=== PATIENT | female | born 1945 | race Caucasian/White ===

== ENCOUNTER 2021-10-28 08:46 | Inpatient (IN) ==
[2021-10-28] MEDS ORDERED: Naloxone 0.4 MG/ML INJ IVP PRN (15:09)
[2021-10-28] MEDS ORDERED: Perflutren Lipid Microsphere 1.3 ML in 0.9 % Sodium Chloride 8.7 ML IVP PRN (15:13)
[2021-10-28] MEDS: Ipratropium/Albuterol Neb 3 ML IH SCH ×3 (15:22→19:59)
[2021-10-28] MEDS ORDERED: Furosemide 40 MG/4 ML VIAL IVP ONE ×2 (15:46→21:00)
[2021-10-28 15:49] LABS: ABG Base Excess -8 mEq/L (-2 to 3); ABG HCO3 17 mEq/L (21-27); ABG Oxygen Saturation 88 % (95-98); ABG PCO2 29 mmHg (35-45); ABG PH 7.36 pH Units (7.32-7.45); ABG PO2 56 mmHg (85-104); ABG TCO2 18 mEq/L (20-26)
[2021-10-28] MEDS: Piperacillin/Tazobactam 3.375 GM in 0.9 % Sodium Chloride Mini Bag 100 ML IVPB SCH ×2 (16:44→23:29)
[2021-10-28 17:33] LABS: Basophils # 0.1 K/mcL (0.0-0.2); Basophils % 0.6 %; Eosinophils # 0.8 K/mcL (0.0-0.6); Eosinophils % 4.4 %; Hematocrit 21.8 % (35.3-44.9); Hemoglobin 7.1 g/dL (11.5-15.4); Immature Granulocytes % 0.8 % (0-4); Lymphocytes # 1.5 K/mcL (0.6-4.6); Lymphocytes % 8.9 %; Mean Corpuscular HGB Conc 32.6 g/dL (31.6-35.5); Mean Corpuscular Hemoglobin 27.3 pg (28.0-33.3); Mean Corpuscular Volume 83.8 fL (83.0-100.0); Mean Platelet Volume 9.6 fL (9.4-12.4); Monocytes # 1.7 K/mcL (0.0-1.3); Monocytes % 10.2 %; Neutrophils # 12.7 K/mcL (1.6-8.9); Platelet Count 646 K/mcL (140-400); Red Cell Distribution Width 19.8 % (11.5-14.5); Segmented Neutrophils % 75.1 %; White Blood Count 16.9 K/mcL (4.3-11.1)
[2021-10-28 17:44] LABS: INR 2.3
[2021-10-28 17:47] LABS: Activated Partial Thrombo Time 34.8 Seconds (26.0-36.0)
[2021-10-28 17:57] LABS: BUN/Creatinine Ratio 50 (6-26); Blood Urea Nitrogen 37 mg/dL (8-23); C-Reactive Protein 235 mg/L (Less than 10); Calcium 8.5 mg/dL (8.6-10.3); Carbon Dioxide 17 mEq/L (23-29); Chloride 106 mEq/L (98-107); Glucose 84 mg/dL (70-105); Osmolality,Calculated 290 (280-300); Phosphorous 3.7 mg/dL (2.7-4.5); Potassium 3.4 mEq/L (3.5-5.1); Sodium 136 mEq/L (136-145); eGFR For African Americans > 60 (> 60); eGFR For Non-African Americans > 60 (> 60)
[2021-10-28 17:58] LABS: Troponin I < 0.03 ng/mL (< 0.04)
[2021-10-28] MEDS ORDERED: *HR* HYDROmorphone (PF) 1 MG/ML SYRINGE IVP ONE (18:21)
[2021-10-28 19:05] LABS: Bilirubin,Urine Negative (Negative); Blood,Urine Negative (Negative); Clarity,Urine Clear (Clear); Color,Urine Colorless (Yellow); Glucose,Urine (UA) Normal (Normal); Ketones,Urine Negative (Negative); Leukocyte Esterase,Urine Negative (Negative); Nitrite,Urine Negative (Negative); Protein,Urine Trace mg/dL (Neg-Trace); Urobilinogen,Urine Normal (Normal)
[2021-10-28] MEDS: Vancomycin Oral Soln 125 MG/2.5 ML UDC PO SCH (20:49)
[2021-10-28] MEDS: *HR* OxyCODONE Immed Rel 5 MG TABLET PO PRN (21:19)
[2021-10-29] MEDS: *HR* OxyCODONE Immed Rel 5 MG TABLET PO PRN ×2 (01:37→21:22)
[2021-10-29] MEDS: Ipratropium/Albuterol Neb 3 ML IH SCH ×4 (03:54→20:39)
[2021-10-29] MEDS ORDERED: 0.9 % Sodium Chloride 500 ML IVC ONE ×2 (05:25→05:52)
[2021-10-29] MEDS ORDERED: 0.9 % Sodium Chloride 500 ML ONE (05:25)
[2021-10-29 05:38] LABS: Basophils # 0.2 K/mcL (0.0-0.2); Basophils % 1.2 %; Eosinophils # 1.4 K/mcL (0.0-0.6); Hematocrit 22.7 % (35.3-44.9); Hemoglobin 7.1 g/dL (11.5-15.4); Immature Granulocytes % 0.8 % (0-4); Lymphocytes # 1.5 K/mcL (0.6-4.6); Lymphocytes % 10.8 %; Mean Corpuscular HGB Conc 31.3 g/dL (31.6-35.5); Mean Corpuscular Hemoglobin 26.4 pg (28.0-33.3); Mean Corpuscular Volume 84.4 fL (83.0-100.0); Mean Platelet Volume 9.4 fL (9.4-12.4); Monocytes # 1.5 K/mcL (0.0-1.3); Monocytes % 10.6 %; Neutrophils # 9.5 K/mcL (1.6-8.9); Platelet Count 632 K/mcL (140-400); Red Blood Count 2.69 M/mcL (3.82-4.97); Red Cell Distribution Width 19.9 % (11.5-14.5); Segmented Neutrophils % 66.6 %; White Blood Count 14.3 K/mcL (4.3-11.1)
[2021-10-29 05:42] LABS: INR 1.9; Prothrombin Time 21.2 Seconds (9.4-12.1)
[2021-10-29] MEDS ORDERED: 0.9 % Sodium Chloride 250 ML IVC SCH (05:45)
[2021-10-29 05:55] LABS: BUN/Creatinine Ratio 39 (6-26); Blood Urea Nitrogen 33 mg/dL (8-23); Calcium 8.5 mg/dL (8.6-10.3); Carbon Dioxide 19 mEq/L (23-29); Chloride 107 mEq/L (98-107); Glucose 79 mg/dL (70-105); Magnesium 1.9 mg/dL (1.6-2.6); Osmolality,Calculated 286 (280-300); Phosphorous 4.6 mg/dL (2.7-4.5); Potassium 3.3 mEq/L (3.5-5.1); Sodium 135 mEq/L (136-145); eGFR For African Americans > 60 (> 60); eGFR For Non-African Americans > 60 (> 60)
[2021-10-29] MEDS ORDERED: *HR* Dextrose 50 % in Water (Syg) 50 ML SYRINGE ONE (06:06)
[2021-10-29] MEDS ORDERED: Dextrose Gel 15 GM/37.5 ML TUBE PO PRN ×2 (06:07)
[2021-10-29] MEDS ORDERED: D5% in Water 1,000 ML IVC PRN (06:07)
[2021-10-29] MEDS: *HR* Dextrose 50 % in Water (Syg) 50 ML SYRINGE IVP PRN ×2 (06:15→20:10)
[2021-10-29 06:34] LABS: Influenza A PCR Negative (Negative); Influenza B PCR Negative (Negative); Resp. Syncytial Virus PCR Negative (Negative)
[2021-10-29 07:04] LABS: SARS-CoV-2 by PCR (In House) Negative (Negative)
[2021-10-29] MEDS ORDERED: 0.9 % Sodium Chloride 250 ML ONE (07:39)
[2021-10-29] MEDS: Piperacillin/Tazobactam 3.375 GM in 0.9 % Sodium Chloride Mini Bag 100 ML IVPB SCH ×3 (08:07→23:28)
[2021-10-29] MEDS: Vancomycin Oral Soln 125 MG/2.5 ML UDC PO SCH ×4 (08:07→21:22)
[2021-10-29] MEDS ORDERED: Perflutren Lipid Microsphere 1.3 ML in 0.9 % Sodium Chloride 8.7 ML IVP PRN (09:32)
[2021-10-29] MEDS ORDERED: *HR* Heparin 5,000 UNIT/ML VIAL IVP PRN ×3 (15:01→15:25)
[2021-10-29] MEDS ORDERED: *HR* Heparin 5,000 UNIT/ML VIAL IVP ONE ×2 (15:01→15:25)
[2021-10-29] MEDS ORDERED: Heparin 25,000UNIT/250ML 1/2NS 25,000 UNIT/250 ML IV.SOLN IVC SCH (15:15)
[2021-10-29] MEDS ORDERED: Lidocaine -MPF 1% 5 ML AMPUL INFILT ONE (16:39)
[2021-10-29] MEDS: Albumin 25% 25gram/100mL 25 GM/100 ML IV.SOLN IVC SCH ×2 (18:00→18:46)
[2021-10-29] MEDS: Heparin 25,000 UNIT/250 ML 25,000 UNIT/250 ML IV.SOLN IVC SCH (18:01)
[2021-10-29 18:10] LABS: Total Protein,Pleural Fluid 2.1 g/dL; Total Protein,Pleural Fluid 2.2 g/dL
[2021-10-29 18:17] LABS: Hematocrit 27.5 % (35.3-44.9)
[2021-10-29 18:18] LABS: Hemoglobin 8.9 g/dL (11.5-15.4)
[2021-10-29 18:23] LABS: Heparin anti-factor XA UFH 0.99 IU/mL (0.30-0.70); INR 1.7; Prothrombin Time 18.6 Seconds (9.4-12.1)
[2021-10-29 18:24] LABS: RBC,Pleural Fluid 3000 RBC/mcL
[2021-10-29 18:25] LABS: Activated Partial Thrombo Time 31.8 Seconds (26.0-36.0)
[2021-10-29 18:30] LABS: RBC,Pleural Fluid 4000 RBC/mcL
[2021-10-29 18:47] LABS: Albumin 2.4 g/dL (3.5-5.7); Bilirubin,Direct 0.5 mg/dL (0.0-0.2); Bilirubin,Indirect 0.3 mg/dL (0.0-1.0); Bilirubin,Total 0.8 mg/dL (0.3-1.0); Globulin 2.5 g/dL (2.4-3.5); Total Protein 4.9 g/dL (6.4-8.9)
[2021-10-29 19:03] LABS: Basophils,Pleural Fluid 0 %; Eosinophils,Pleural Fluid 0 %
[2021-10-29 19:04] LABS: Appearance of Pleural Fl Clear (Clear)
[2021-10-29 19:06] LABS: Basophils,Pleural Fluid 0 %
[2021-10-29 19:07] LABS: Appearance of Pleural Fl Clear (Clear)
[2021-10-29] MEDS: *HR* HYDROmorphone (PF) 1 MG/ML SYRINGE IVP PRN (20:09)
[2021-10-29 20:21] LABS: Hematocrit 24.1 % (35.3-44.9); Hemoglobin 7.7 g/dL (11.5-15.4); Mean Corpuscular Hemoglobin 26.9 pg (28.0-33.3); Mean Corpuscular Volume 84.3 fL (83.0-100.0); Mean Platelet Volume 9.5 fL (9.4-12.4); Platelet Count 522 K/mcL (140-400); Red Blood Count 2.86 M/mcL (3.82-4.97); Red Cell Distribution Width 18.2 % (11.5-14.5); White Blood Count 14.9 K/mcL (4.3-11.1)
[2021-10-29] MEDS: Mirtazapine 15 MG TABLET PO SCH (21:22)
[2021-10-29] MEDS: Latanoprost 2.5 ML BOTTLE BOTH EYES SCH (21:22)
[2021-10-29] MEDS: Leptospermum Honey Gel 44 ML TUBE TP SCH (21:23)
[2021-10-29] MEDS: Albumin 25% 25gram/100mL 25 GM/100 ML IV.SOLN IVPB SCH (23:29)
[2021-10-30] MEDS: Ipratropium/Albuterol Neb 3 ML IH SCH ×4 (04:04→23:09)
[2021-10-30] MEDS: *HR* HYDROmorphone (PF) 1 MG/ML SYRINGE IVP PRN ×2 (05:10→20:06)
[2021-10-30 05:24] LABS: Hematocrit 24.6 % (35.3-44.9); Hemoglobin 7.8 g/dL (11.5-15.4); Mean Corpuscular HGB Conc 31.7 g/dL (31.6-35.5); Mean Corpuscular Hemoglobin 26.7 pg (28.0-33.3); Mean Corpuscular Volume 84.2 fL (83.0-100.0); Mean Platelet Volume 9.2 fL (9.4-12.4); Platelet Count 508 K/mcL (140-400); Red Blood Count 2.92 M/mcL (3.82-4.97); Red Cell Distribution Width 18.1 % (11.5-14.5); White Blood Count 11.6 K/mcL (4.3-11.1)
[2021-10-30] MEDS: *HR* Dextrose 50 % in Water (Syg) 50 ML SYRINGE IVP PRN (05:27)
[2021-10-30 05:41] LABS: BUN/Creatinine Ratio 40 (6-26); Blood Urea Nitrogen 24 mg/dL (8-23); Calcium 8.2 mg/dL (8.6-10.3); Carbon Dioxide 16 mEq/L (23-29); Chloride 111 mEq/L (98-107); Glucose 76 mg/dL (70-105); Osmolality,Calculated 289 (280-300); Potassium 3.6 mEq/L (3.5-5.1); Sodium 138 mEq/L (136-145); eGFR For African Americans > 60 (> 60); eGFR For Non-African Americans > 60 (> 60)
[2021-10-30] MEDS: *HR* OxyCODONE Immed Rel 5 MG TABLET PO PRN ×2 (08:05→22:34)
[2021-10-30] MEDS: Albumin 25% 25gram/100mL 25 GM/100 ML IV.SOLN IVPB SCH ×2 (08:06→16:30)
[2021-10-30] MEDS: Vancomycin Oral Soln 125 MG/2.5 ML UDC PO SCH ×4 (08:06→22:35)
[2021-10-30] MEDS: Piperacillin/Tazobactam 3.375 GM in 0.9 % Sodium Chloride Mini Bag 100 ML IVPB SCH ×2 (08:08→16:31)
[2021-10-30 08:12] LABS: Lactate Dehydrogenase 226 Units/L (140-271)
[2021-10-30] MEDS: Doxycycline 100 MG CAPSULE PO SCH ×2 (10:02→22:34)
[2021-10-30] MEDS: Leptospermum Honey Gel 44 ML TUBE TP SCH ×2 (10:02→22:35)
[2021-10-30] MEDS: Heparin 25,000 UNIT/250 ML 25,000 UNIT/250 ML IV.SOLN IVC SCH (18:16)
[2021-10-30] MEDS: Ondansetron 4 MG/2 ML VIAL IVP PRN (20:07)
[2021-10-30] MEDS: Latanoprost 2.5 ML BOTTLE BOTH EYES SCH (22:35)
[2021-10-30] MEDS: Mirtazapine 15 MG TABLET PO SCH (22:35)
[2021-10-31] MEDS: Doxycycline 100 MG CAPSULE PO SCH ×3 (00:42→22:43)
[2021-10-31] MEDS: Mirtazapine 15 MG TABLET PO SCH ×2 (00:43→22:43)
[2021-10-31] MEDS: Vancomycin Oral Soln 125 MG/2.5 ML UDC PO SCH ×5 (00:43→22:43)
[2021-10-31] MEDS: Piperacillin/Tazobactam 3.375 GM in 0.9 % Sodium Chloride Mini Bag 100 ML IVPB SCH ×3 (01:32→16:12)
[2021-10-31] MEDS: Ipratropium/Albuterol Neb 3 ML IH SCH ×4 (03:54→21:16)
[2021-10-31] MEDS: *HR* HYDROmorphone (PF) 1 MG/ML SYRINGE IVP PRN ×2 (04:37→18:24)
[2021-10-31] MEDS ORDERED: Perflutren Lipid Microsphere 1.3 ML in 0.9 % Sodium Chloride 8.7 ML IVP PRN (07:00)
[2021-10-31 07:03] LABS: Hematocrit 25.4 % (35.3-44.9); Hemoglobin 8.1 g/dL (11.5-15.4); Mean Corpuscular HGB Conc 31.9 g/dL (31.6-35.5); Mean Corpuscular Hemoglobin 26.4 pg (28.0-33.3); Mean Corpuscular Volume 82.7 fL (83.0-100.0); Mean Platelet Volume 9.3 fL (9.4-12.4); Platelet Count 540 K/mcL (140-400); Red Blood Count 3.07 M/mcL (3.82-4.97); Red Cell Distribution Width 18.3 % (11.5-14.5); White Blood Count 11.5 K/mcL (4.3-11.1)
[2021-10-31 07:24] LABS: BUN/Creatinine Ratio 31 (6-26); Blood Urea Nitrogen 15 mg/dL (8-23); Carbon Dioxide 18 mEq/L (23-29); Chloride 110 mEq/L (98-107); Glucose 101 mg/dL (70-105); Osmolality,Calculated 285 (280-300); Potassium 2.9 mEq/L (3.5-5.1); Sodium 137 mEq/L (136-145); eGFR For African Americans > 60 (> 60); eGFR For Non-African Americans > 60 (> 60)
[2021-10-31] MEDS: Leptospermum Honey Gel 44 ML TUBE TP SCH ×2 (08:56→22:44)
[2021-10-31] MEDS ORDERED: Morphine Sulfate 2 MG/ML SYRINGE IVP ONE (10:00)
[2021-10-31 10:54] LABS: ABG Base Excess -7 mEq/L (-2 to 3); ABG HCO3 18 mEq/L (21-27); ABG Oxygen Saturation 98 % (95-98); ABG PCO2 33 mmHg (35-45); ABG PH 7.35 pH Units (7.32-7.45); ABG PO2 108 mmHg (85-104); ABG TCO2 19 mEq/L (20-26)
[2021-10-31] MEDS ORDERED: Bumetanide 1 MG/4 ML VIAL IVP ONE (11:33)
[2021-10-31] MEDS: *HR* OxyCODONE Immed Rel 5 MG TABLET PO PRN (22:43)
[2021-10-31] MEDS: Latanoprost 2.5 ML BOTTLE BOTH EYES SCH (22:44)
[2021-11-01] MEDS: Piperacillin/Tazobactam 3.375 GM in 0.9 % Sodium Chloride Mini Bag 100 ML IVPB SCH ×3 (00:57→14:48)
[2021-11-01] MEDS: Ipratropium/Albuterol Neb 3 ML IH SCH ×4 (04:14→20:18)
[2021-11-01 06:39] LABS: Hematocrit 24.9 % (35.3-44.9); Hemoglobin 8.3 g/dL (11.5-15.4); Mean Corpuscular HGB Conc 33.3 g/dL (31.6-35.5); Mean Corpuscular Hemoglobin 27.3 pg (28.0-33.3); Mean Corpuscular Volume 81.9 fL (83.0-100.0); Mean Platelet Volume 9.3 fL (9.4-12.4); Platelet Count 539 K/mcL (140-400); Red Blood Count 3.04 M/mcL (3.82-4.97); Red Cell Distribution Width 18.4 % (11.5-14.5); White Blood Count 10.5 K/mcL (4.3-11.1)
[2021-11-01 07:00] LABS: BUN/Creatinine Ratio 27 (6-26); Blood Urea Nitrogen 13 mg/dL (8-23); Calcium 8.1 mg/dL (8.6-10.3); Carbon Dioxide 22 mEq/L (23-29); Chloride 110 mEq/L (98-107); Glucose 93 mg/dL (70-105); Osmolality,Calculated 288 (280-300); Potassium 2.8 mEq/L (3.5-5.1); Sodium 139 mEq/L (136-145); eGFR For African Americans > 60 (> 60); eGFR For Non-African Americans > 60 (> 60)
[2021-11-01] MEDS: *HR* HYDROmorphone (PF) 1 MG/ML SYRINGE IVP PRN ×3 (08:56→22:31)
[2021-11-01] MEDS: Vancomycin Oral Soln 125 MG/2.5 ML UDC PO SCH (08:56)
[2021-11-01] MEDS: Doxycycline 100 MG CAPSULE PO SCH ×2 (09:00→22:22)
[2021-11-01] MEDS: Leptospermum Honey Gel 44 ML TUBE TP SCH ×2 (09:01→22:23)
[2021-11-01] MEDS ORDERED: Bumetanide 1 MG/4 ML VIAL IVP SCH (09:45)
[2021-11-01] MEDS: Bumetanide 1 MG/4 ML VIAL IVP SCH ×2 (12:02→17:05)
[2021-11-01] MEDS: *HR* Heparin 5,000 UNIT/ML VIAL IVP PRN ×2 (14:39→19:58)
[2021-11-01] MEDS: Heparin 25,000 UNIT/250 ML 25,000 UNIT/250 ML IV.SOLN IVC SCH ×2 (16:59→17:27)
[2021-11-01] MEDS: *HR* OxyCODONE Immed Rel 5 MG TABLET PO PRN ×2 (17:06→22:22)
[2021-11-01] MEDS: Mirtazapine 15 MG TABLET PO SCH (22:22)
[2021-11-01] MEDS: Latanoprost 2.5 ML BOTTLE BOTH EYES SCH (22:23)
[2021-11-01] MEDS ORDERED: *HR* LORazepam 2 MG/ML VIAL IVP ONE (23:19)
[2021-11-02] MEDS: Piperacillin/Tazobactam 3.375 GM in 0.9 % Sodium Chloride Mini Bag 100 ML IVPB SCH ×4 (01:30→23:56)
[2021-11-02 01:59] LABS: Hematocrit 27.6 % (35.3-44.9); Hemoglobin 8.8 g/dL (11.5-15.4); Mean Corpuscular HGB Conc 31.9 g/dL (31.6-35.5); Mean Corpuscular Volume 81.7 fL (83.0-100.0); Mean Platelet Volume 9.2 fL (9.4-12.4); Platelet Count 591 K/mcL (140-400); Red Blood Count 3.38 M/mcL (3.82-4.97); Red Cell Distribution Width 18.4 % (11.5-14.5); White Blood Count 12.9 K/mcL (4.3-11.1)
[2021-11-02 02:31] LABS: BUN/Creatinine Ratio 24 (6-26); Blood Urea Nitrogen 12 mg/dL (8-23); Calcium 8.2 mg/dL (8.6-10.3); Carbon Dioxide 26 mEq/L (23-29); Chloride 106 mEq/L (98-107); Glucose 90 mg/dL (70-105); Magnesium 1.2 mg/dL (1.6-2.6); Osmolality,Calculated 287 (280-300); Potassium 3.4 mEq/L (3.5-5.1); Sodium 139 mEq/L (136-145); eGFR For African Americans > 60 (> 60); eGFR For Non-African Americans > 60 (> 60)
[2021-11-02 02:44] LABS: INR 1.5; Prothrombin Time 16.2 Seconds (9.4-12.1)
[2021-11-02] MEDS: *HR* Heparin 5,000 UNIT/ML VIAL IVP PRN ×3 (03:18→21:08)
[2021-11-02] MEDS: Ipratropium/Albuterol Neb 3 ML IH SCH ×4 (04:03→21:26)
[2021-11-02 10:33] LABS: VBG HCO3 26 mEq/L (21-27); VBG PCO2 43 mmHg (41-51); VBG PH 7.39 pH Units (7.32-7.42); VBG PO2 120 mmHg (25-50)
[2021-11-02] MEDS: Bumetanide 1 MG/4 ML VIAL IVP SCH ×2 (10:59→16:08)
[2021-11-02] MEDS: Doxycycline 100 MG CAPSULE PO SCH ×2 (12:18→21:07)
[2021-11-02] MEDS: Leptospermum Honey Gel 44 ML TUBE TP SCH ×2 (16:08→23:15)
[2021-11-02] MEDS: Latanoprost 2.5 ML BOTTLE BOTH EYES SCH (21:00)
[2021-11-02] MEDS: Mirtazapine 15 MG TABLET PO SCH (21:07)
[2021-11-02] MEDS: *HR* OxyCODONE Immed Rel 5 MG TABLET PO PRN (21:07)
[2021-11-02] MEDS: Heparin 25,000 UNIT/250 ML 25,000 UNIT/250 ML IV.SOLN IVC SCH (22:44)
[2021-11-03] MEDS: Ipratropium/Albuterol Neb 3 ML IH SCH ×4 (03:59→19:38)
[2021-11-03] MEDS: *HR* OxyCODONE Immed Rel 5 MG TABLET PO PRN (04:21)
[2021-11-03 04:30] LABS: Hematocrit 28.2 % (35.3-44.9); Hemoglobin 8.9 g/dL (11.5-15.4); Mean Corpuscular HGB Conc 31.6 g/dL (31.6-35.5); Mean Corpuscular Hemoglobin 26.1 pg (28.0-33.3); Mean Corpuscular Volume 82.7 fL (83.0-100.0); Mean Platelet Volume 9.2 fL (9.4-12.4); Platelet Count 553 K/mcL (140-400); Red Blood Count 3.41 M/mcL (3.82-4.97); Red Cell Distribution Width 18.3 % (11.5-14.5); White Blood Count 9.7 K/mcL (4.3-11.1)
[2021-11-03] MEDS: *HR* HYDROmorphone (PF) 1 MG/ML SYRINGE IVP PRN ×3 (04:35→22:00)
[2021-11-03 04:49] LABS: BUN/Creatinine Ratio 30 (6-26); Blood Urea Nitrogen 16 mg/dL (8-23); Calcium 8.3 mg/dL (8.6-10.3); Carbon Dioxide 28 mEq/L (23-29); Chloride 102 mEq/L (98-107); Glucose 98 mg/dL (70-105); Osmolality,Calculated 287 (280-300); Potassium 3.2 mEq/L (3.5-5.1); Sodium 138 mEq/L (136-145); eGFR For African Americans > 60 (> 60); eGFR For Non-African Americans > 60 (> 60)
[2021-11-03 05:52] LABS: Magnesium 1.6 mg/dL (1.6-2.6)
[2021-11-03] MEDS: Bumetanide 1 MG/4 ML VIAL IVP SCH ×2 (10:36→16:36)
[2021-11-03] MEDS: Doxycycline 100 MG CAPSULE PO SCH ×2 (10:36→19:49)
[2021-11-03] MEDS: Piperacillin/Tazobactam 3.375 GM in 0.9 % Sodium Chloride Mini Bag 100 ML IVPB SCH (10:36)
[2021-11-03] MEDS: Leptospermum Honey Gel 44 ML TUBE TP SCH ×2 (16:37→19:49)
[2021-11-03] MEDS: *HR* Heparin 5,000 UNIT/ML VIAL IVP PRN (19:22)
[2021-11-03] MEDS: Latanoprost 2.5 ML BOTTLE BOTH EYES SCH (19:49)
[2021-11-03] MEDS: Mirtazapine 15 MG TABLET PO SCH (19:49)
[2021-11-04] MEDS: *HR* OxyCODONE Immed Rel 5 MG TABLET PO PRN ×3 (00:43→21:48)
[2021-11-04 01:05] LABS: Hemoglobin 8.9 g/dL (11.5-15.4); Mean Corpuscular HGB Conc 31.8 g/dL (31.6-35.5); Mean Corpuscular Hemoglobin 26.3 pg (28.0-33.3); Mean Corpuscular Volume 82.6 fL (83.0-100.0); Mean Platelet Volume 9.2 fL (9.4-12.4); Platelet Count 556 K/mcL (140-400); Red Blood Count 3.39 M/mcL (3.82-4.97); Red Cell Distribution Width 18.1 % (11.5-14.5); White Blood Count 9.7 K/mcL (4.3-11.1)
[2021-11-04 01:15] LABS: BUN/Creatinine Ratio 30 (6-26); Blood Urea Nitrogen 16 mg/dL (8-23); Calcium 8.4 mg/dL (8.6-10.3); Carbon Dioxide 29 mEq/L (23-29); Chloride 100 mEq/L (98-107); Glucose 125 mg/dL (70-105); Osmolality,Calculated 289 (280-300); Potassium 3.2 mEq/L (3.5-5.1); Sodium 138 mEq/L (136-145); eGFR For African Americans > 60 (> 60); eGFR For Non-African Americans > 60 (> 60)
[2021-11-04] MEDS: Heparin 25,000 UNIT/250 ML 25,000 UNIT/250 ML IV.SOLN IVC SCH ×2 (02:06→22:30)
[2021-11-04] MEDS: Ipratropium/Albuterol Neb 3 ML IH SCH ×4 (03:40→20:30)
[2021-11-04] MEDS: *HR* HYDROmorphone (PF) 1 MG/ML SYRINGE IVP PRN ×3 (03:44→20:06)
[2021-11-04] MEDS: Bumetanide 1 MG/4 ML VIAL IVP SCH ×2 (09:53→16:10)
[2021-11-04] MEDS: Leptospermum Honey Gel 44 ML TUBE TP SCH ×2 (09:53→21:49)
[2021-11-04] MEDS: Doxycycline 100 MG CAPSULE PO SCH (09:53)
[2021-11-04] MEDS: Ondansetron 4 MG/2 ML VIAL IVP PRN (10:43)
[2021-11-04] MEDS: Latanoprost 2.5 ML BOTTLE BOTH EYES SCH (21:48)
[2021-11-04] MEDS: Mirtazapine 15 MG TABLET PO SCH (21:48)
[2021-11-05] MEDS: *HR* HYDROmorphone (PF) 1 MG/ML SYRINGE IVP PRN ×4 (00:50→22:26)
[2021-11-05] MEDS ORDERED: *HR* Alteplase (Cathflo) 2 MG VIAL IVP ONE (01:19)
[2021-11-05] MEDS: Ipratropium/Albuterol Neb 3 ML IH SCH ×4 (03:38→20:20)
[2021-11-05 05:49] LABS: Hematocrit 25.6 % (35.3-44.9); Hemoglobin 8.1 g/dL (11.5-15.4); Mean Corpuscular HGB Conc 31.6 g/dL (31.6-35.5); Mean Corpuscular Hemoglobin 26.9 pg (28.0-33.3); Mean Platelet Volume 10.1 fL (9.4-12.4); Platelet Count 481 K/mcL (140-400); Red Blood Count 3.01 M/mcL (3.82-4.97); Red Cell Distribution Width 18.2 % (11.5-14.5); White Blood Count 9.9 K/mcL (4.3-11.1)
[2021-11-05 06:27] LABS: BUN/Creatinine Ratio 31 (6-26); Blood Urea Nitrogen 19 mg/dL (8-23); Calcium 8.4 mg/dL (8.6-10.3); Carbon Dioxide 33 mEq/L (23-29); Chloride 98 mEq/L (98-107); Glucose 117 mg/dL (70-105); Osmolality,Calculated 289 (280-300); Potassium 3.6 mEq/L (3.5-5.1); Sodium 138 mEq/L (136-145); eGFR For African Americans > 60 (> 60); eGFR For Non-African Americans > 60 (> 60)
[2021-11-05] MEDS: Bumetanide 1 MG/4 ML VIAL IVP SCH (10:56)
[2021-11-05] MEDS: *HR* OxyCODONE Immed Rel 5 MG TABLET PO PRN ×2 (10:57→15:02)
[2021-11-05] MEDS: Leptospermum Honey Gel 44 ML TUBE TP SCH ×2 (10:58→19:42)
[2021-11-05] MEDS: *HR* Heparin 5,000 UNIT/ML VIAL IVP PRN ×2 (13:21→21:00)
[2021-11-05] MEDS ORDERED: Perflutren Lipid Microsphere 1.3 ML in 0.9 % Sodium Chloride 8.7 ML IVP PRN (16:32)
[2021-11-05] MEDS: Furosemide 20 MG TABLET PO SCH (17:16)
[2021-11-05] MEDS: Latanoprost 2.5 ML BOTTLE BOTH EYES SCH (19:42)
[2021-11-05] MEDS: Mirtazapine 15 MG TABLET PO SCH (19:42)
[2021-11-05 20:28] LABS: Immature Reticulocyte % 25.2 % (11.0-38.0); Retculocyte # 0.16 M/mcL (0.05-0.10); Reticulocyte % 4.8 % (1.6-2.8)
[2021-11-05 20:52] LABS: Iron 23 mcg/dL (50-170)
[2021-11-06] MEDS: Heparin 25,000 UNIT/250 ML 25,000 UNIT/250 ML IV.SOLN IVC SCH ×2 (00:05→22:46)
[2021-11-06 03:23] LABS: Hematocrit 27.4 % (35.3-44.9); Hemoglobin 8.5 g/dL (11.5-15.4); Mean Corpuscular Hemoglobin 25.9 pg (28.0-33.3); Mean Corpuscular Volume 83.5 fL (83.0-100.0); Mean Platelet Volume 9.6 fL (9.4-12.4); Platelet Count 515 K/mcL (140-400); Red Blood Count 3.28 M/mcL (3.82-4.97); Red Cell Distribution Width 18.2 % (11.5-14.5); White Blood Count 10.8 K/mcL (4.3-11.1)
[2021-11-06] MEDS: Ipratropium/Albuterol Neb 3 ML IH SCH ×4 (03:39→21:31)
[2021-11-06 03:44] LABS: BUN/Creatinine Ratio 27 (6-26); Blood Urea Nitrogen 17 mg/dL (8-23); Calcium 9.3 mg/dL (8.6-10.3); Carbon Dioxide 34 mEq/L (23-29); Chloride 97 mEq/L (98-107); Glucose 128 mg/dL (70-105); Osmolality,Calculated 289 (280-300); Potassium 3.8 mEq/L (3.5-5.1); Sodium 138 mEq/L (136-145); eGFR For African Americans > 60 (> 60); eGFR For Non-African Americans > 60 (> 60)
[2021-11-06] MEDS: *HR* HYDROmorphone (PF) 1 MG/ML SYRINGE IVP PRN ×2 (08:51→19:48)
[2021-11-06] MEDS: Furosemide 20 MG TABLET PO SCH ×2 (08:52→15:33)
[2021-11-06] MEDS: Leptospermum Honey Gel 44 ML TUBE TP SCH ×2 (08:52→19:49)
[2021-11-06] MEDS: *HR* Heparin 5,000 UNIT/ML VIAL IVP PRN (13:54)
[2021-11-06] MEDS: Mirtazapine 15 MG TABLET PO SCH (19:48)
[2021-11-06] MEDS: Latanoprost 2.5 ML BOTTLE BOTH EYES SCH (19:49)
[2021-11-07] MEDS: *HR* HYDROmorphone (PF) 1 MG/ML SYRINGE IVP PRN ×5 (00:29→21:55)
[2021-11-07] MEDS: Ipratropium/Albuterol Neb 3 ML IH SCH ×4 (03:32→20:11)
[2021-11-07 04:05] LABS: Hematocrit 27.3 % (35.3-44.9); Hemoglobin 8.5 g/dL (11.5-15.4); Mean Corpuscular HGB Conc 31.1 g/dL (31.6-35.5); Mean Corpuscular Hemoglobin 26.2 pg (28.0-33.3); Mean Platelet Volume 10.1 fL (9.4-12.4); Platelet Count 541 K/mcL (140-400); Red Blood Count 3.25 M/mcL (3.82-4.97); Red Cell Distribution Width 18.3 % (11.5-14.5); White Blood Count 12.4 K/mcL (4.3-11.1)
[2021-11-07 04:24] LABS: BUN/Creatinine Ratio 37 (6-26); Blood Urea Nitrogen 23 mg/dL (8-23); Calcium 9.3 mg/dL (8.6-10.3); Carbon Dioxide 33 mEq/L (23-29); Chloride 96 mEq/L (98-107); Glucose 115 mg/dL (70-105); Osmolality,Calculated 287 (280-300); Potassium 3.8 mEq/L (3.5-5.1); Sodium 136 mEq/L (136-145); eGFR For African Americans > 60 (> 60); eGFR For Non-African Americans > 60 (> 60)
[2021-11-07] MEDS: Furosemide 20 MG TABLET PO SCH ×2 (10:04→17:06)
[2021-11-07] MEDS: Leptospermum Honey Gel 44 ML TUBE TP SCH (10:28)
[2021-11-07] MEDS: *HR* OxyCODONE Immed Rel 5 MG TABLET PO PRN ×2 (12:28→20:39)
[2021-11-07] MEDS: Heparin 25,000 UNIT/250 ML 25,000 UNIT/250 ML IV.SOLN IVC SCH (20:30)
[2021-11-07] MEDS: Mirtazapine 15 MG TABLET PO SCH (20:40)
[2021-11-08] MEDS: Latanoprost 2.5 ML BOTTLE BOTH EYES SCH ×2 (01:16→21:24)
[2021-11-08] MEDS: Leptospermum Honey Gel 44 ML TUBE TP SCH ×3 (01:16→21:24)
[2021-11-08] MEDS: Ipratropium/Albuterol Neb 3 ML IH SCH ×4 (06:13→22:11)
[2021-11-08 06:50] LABS: BUN/Creatinine Ratio 38 (6-26); Blood Urea Nitrogen 26 mg/dL (8-23); Calcium 9.4 mg/dL (8.6-10.3); Carbon Dioxide 34 mEq/L (23-29); Chloride 96 mEq/L (98-107); Glucose 102 mg/dL (70-105); Osmolality,Calculated 289 (280-300); Potassium 3.8 mEq/L (3.5-5.1); Sodium 137 mEq/L (136-145); eGFR For African Americans > 60 (> 60); eGFR For Non-African Americans > 60 (> 60)
[2021-11-08 07:20] LABS: % Iron Saturation 13 % (15-50); Transferrin 130 mg/dL (200-400)
[2021-11-08 07:22] LABS: Hematocrit 26.9 % (35.3-44.9); Hemoglobin 8.3 g/dL (11.5-15.4); Mean Corpuscular HGB Conc 30.9 g/dL (31.6-35.5); Mean Corpuscular Hemoglobin 26.3 pg (28.0-33.3); Mean Corpuscular Volume 85.1 fL (83.0-100.0); Mean Platelet Volume 10.7 fL (9.4-12.4); Platelet Count 549 K/mcL (140-400); Red Blood Count 3.16 M/mcL (3.82-4.97); Red Cell Distribution Width 18.4 % (11.5-14.5); White Blood Count 10.2 K/mcL (4.3-11.1)
[2021-11-08] MEDS: Furosemide 20 MG TABLET PO SCH ×2 (08:50→15:45)
[2021-11-08] MEDS: *HR* OxyCODONE Immed Rel 5 MG TABLET PO PRN ×2 (08:54→16:04)
[2021-11-08] MEDS: *HR* HYDROmorphone (PF) 1 MG/ML SYRINGE IVP PRN ×3 (10:08→18:51)
[2021-11-08] MEDS: Heparin 25,000 UNIT/250 ML 25,000 UNIT/250 ML IV.SOLN IVC SCH (15:46)
[2021-11-08] MEDS: Mirtazapine 15 MG TABLET PO SCH (21:23)
[2021-11-09] MEDS: Ipratropium/Albuterol Neb 3 ML IH SCH ×4 (05:42→22:47)
[2021-11-09] MEDS: *HR* OxyCODONE Immed Rel 5 MG TABLET PO PRN ×2 (05:47→17:57)
[2021-11-09 06:11] LABS: Hematocrit 28.3 % (35.3-44.9); Hemoglobin 8.8 g/dL (11.5-15.4); Mean Corpuscular HGB Conc 31.1 g/dL (31.6-35.5); Mean Corpuscular Hemoglobin 26.7 pg (28.0-33.3); Mean Platelet Volume 10.3 fL (9.4-12.4); Platelet Count 607 K/mcL (140-400); Red Blood Count 3.29 M/mcL (3.82-4.97); Red Cell Distribution Width 17.9 % (11.5-14.5); White Blood Count 9.7 K/mcL (4.3-11.1)
[2021-11-09 06:39] LABS: BUN/Creatinine Ratio 36 (6-26); Blood Urea Nitrogen 25 mg/dL (8-23); Calcium 9.1 mg/dL (8.6-10.3); Carbon Dioxide 31 mEq/L (23-29); Chloride 99 mEq/L (98-107); Glucose 107 mg/dL (70-105); Osmolality,Calculated 289 (280-300); Potassium 3.8 mEq/L (3.5-5.1); Sodium 137 mEq/L (136-145); eGFR For African Americans > 60 (> 60); eGFR For Non-African Americans > 60 (> 60)
[2021-11-09] MEDS: *HR* HYDROmorphone (PF) 1 MG/ML SYRINGE IVP PRN ×3 (09:03→20:12)
[2021-11-09] MEDS: Furosemide 20 MG TABLET PO SCH (09:05)
[2021-11-09] MEDS: Heparin 25,000 UNIT/250 ML 25,000 UNIT/250 ML IV.SOLN IVC SCH (10:44)
[2021-11-09] MEDS: Leptospermum Honey Gel 44 ML TUBE TP SCH ×2 (11:41→20:08)
[2021-11-09] MEDS: Apixaban 5 MG TABLET PO SCH (20:12)
[2021-11-09] MEDS: Latanoprost 2.5 ML BOTTLE BOTH EYES SCH (20:18)
[2021-11-09] MEDS: Melatonin 3 MG TABLET PO PRN (21:26)
[2021-11-09] MEDS: Mirtazapine 15 MG TABLET PO SCH (21:26)
[2021-11-10] MEDS: Ipratropium/Albuterol Neb 3 ML IH SCH ×4 (03:53→20:01)
[2021-11-10 05:37] LABS: Hematocrit 27.3 % (35.3-44.9); Hemoglobin 8.5 g/dL (11.5-15.4); Mean Corpuscular HGB Conc 31.1 g/dL (31.6-35.5); Mean Corpuscular Hemoglobin 26.7 pg (28.0-33.3); Mean Corpuscular Volume 85.8 fL (83.0-100.0); Mean Platelet Volume 10.4 fL (9.4-12.4); Platelet Count 589 K/mcL (140-400); Red Blood Count 3.18 M/mcL (3.82-4.97); Red Cell Distribution Width 17.9 % (11.5-14.5); White Blood Count 10.1 K/mcL (4.3-11.1)
[2021-11-10 07:10] LABS: BUN/Creatinine Ratio 38 (6-26); Blood Urea Nitrogen 26 mg/dL (8-23); Calcium 9.7 mg/dL (8.6-10.3); Carbon Dioxide 29 mEq/L (23-29); Chloride 97 mEq/L (98-107); Glucose 111 mg/dL (70-105); Osmolality,Calculated 285 (280-300); Potassium 4.2 mEq/L (3.5-5.1); Sodium 135 mEq/L (136-145); eGFR For African Americans > 60 (> 60); eGFR For Non-African Americans > 60 (> 60)
[2021-11-10] MEDS: Apixaban 5 MG TABLET PO SCH ×2 (09:33→20:52)
[2021-11-10] MEDS: Leptospermum Honey Gel 44 ML TUBE TP SCH ×2 (09:33→19:24)
[2021-11-10] MEDS: Furosemide 20 MG TABLET PO SCH (09:33)
[2021-11-10] MEDS: *HR* HYDROmorphone (PF) 1 MG/ML SYRINGE IVP PRN ×3 (11:25→19:30)
[2021-11-10] MEDS: *HR* OxyCODONE Immed Rel 5 MG TABLET PO PRN (14:47)
[2021-11-10] MEDS: Latanoprost 2.5 ML BOTTLE BOTH EYES SCH (20:52)
[2021-11-10] MEDS: Mirtazapine 15 MG TABLET PO SCH (20:52)
[2021-11-10] MEDS: Melatonin 3 MG TABLET PO PRN (20:52)
[2021-11-11] MEDS: *HR* HYDROmorphone (PF) 1 MG/ML SYRINGE IVP PRN ×3 (00:26→11:35)
[2021-11-11] MEDS: *HR* OxyCODONE Immed Rel 5 MG TABLET PO PRN ×3 (03:59→21:36)
[2021-11-11] MEDS: Ipratropium/Albuterol Neb 3 ML IH SCH ×4 (04:22→22:11)
[2021-11-11] MEDS: Apixaban 5 MG TABLET PO SCH ×2 (08:07→21:37)
[2021-11-11] MEDS: Furosemide 20 MG TABLET PO SCH (08:08)
[2021-11-11] MEDS: Leptospermum Honey Gel 44 ML TUBE TP SCH ×2 (08:08→21:37)
[2021-11-11] MEDS ORDERED: Sennosides/Docusate Sodium TABLET PO SCH (21:00)
[2021-11-11] MEDS: Melatonin 3 MG TABLET PO PRN (21:37)
[2021-11-11] MEDS: Mirtazapine 15 MG TABLET PO SCH (21:37)
[2021-11-11] MEDS: Latanoprost 2.5 ML BOTTLE BOTH EYES SCH (21:38)
[2021-11-12] MEDS: Ipratropium/Albuterol Neb 3 ML IH SCH ×4 (03:40→20:54)
[2021-11-12] MEDS: Apixaban 5 MG TABLET PO SCH ×2 (07:36→22:00)
[2021-11-12] MEDS: Leptospermum Honey Gel 44 ML TUBE TP SCH ×2 (07:37→22:00)
[2021-11-12] MEDS: Furosemide 20 MG TABLET PO SCH (07:37)
[2021-11-12] MEDS: *HR* OxyCODONE Immed Rel 5 MG TABLET PO PRN ×3 (09:49→21:59)
[2021-11-12] MEDS: Acetaminophen 325 MG TABLET PO PRN (12:23)
[2021-11-12] MEDS ORDERED: Ketorolac 30 MG/ML VIAL IM PRN (18:22)
[2021-11-12] MEDS: Latanoprost 2.5 ML BOTTLE BOTH EYES SCH (22:00)
[2021-11-12] MEDS: Mirtazapine 15 MG TABLET PO SCH (22:00)
[2021-11-12] MEDS: Melatonin 3 MG TABLET PO PRN (23:49)
[2021-11-13] MEDS: Ipratropium/Albuterol Neb 3 ML IH SCH ×4 (03:51→20:31)
[2021-11-13] MEDS: Apixaban 5 MG TABLET PO SCH ×2 (08:12→21:02)
[2021-11-13] MEDS: Leptospermum Honey Gel 44 ML TUBE TP SCH ×2 (08:12→22:58)
[2021-11-13] MEDS: Furosemide 20 MG TABLET PO SCH (08:12)
[2021-11-13] MEDS: *HR* OxyCODONE Immed Rel 5 MG TABLET PO PRN ×3 (08:21→23:41)
[2021-11-13] MEDS: Acetaminophen 325 MG TABLET PO PRN (12:46)
[2021-11-13] MEDS ORDERED: *HR* HYDROmorphone (PF) 1 MG/ML SYRINGE IVP ONE (20:49)
[2021-11-13] MEDS: Mirtazapine 15 MG TABLET PO SCH (21:02)
[2021-11-13] MEDS: Latanoprost 2.5 ML BOTTLE BOTH EYES SCH (21:03)
[2021-11-14] MEDS: Ipratropium/Albuterol Neb 3 ML IH SCH ×4 (03:24→21:19)
[2021-11-14] MEDS: Apixaban 5 MG TABLET PO SCH ×2 (08:41→20:15)
[2021-11-14] MEDS: Furosemide 20 MG TABLET PO SCH (08:41)
[2021-11-14] MEDS: Leptospermum Honey Gel 44 ML TUBE TP SCH (08:42)
[2021-11-14] MEDS: *HR* HYDROmorphone 2 MG/ML SYRINGE IVP PRN (12:48)
[2021-11-14 13:05] LABS: Hematocrit 30.8 % (35.3-44.9); Hemoglobin 9.2 g/dL (11.5-15.4); Mean Corpuscular HGB Conc 29.9 g/dL (31.6-35.5); Mean Corpuscular Hemoglobin 25.8 pg (28.0-33.3); Mean Corpuscular Volume 86.3 fL (83.0-100.0); Mean Platelet Volume 10.8 fL (9.4-12.4); Platelet Count 566 K/mcL (140-400); Red Blood Count 3.57 M/mcL (3.82-4.97); Red Cell Distribution Width 17.2 % (11.5-14.5); White Blood Count 13.3 K/mcL (4.3-11.1)
[2021-11-14] MEDS: *HR* OxyCODONE Immed Rel 5 MG TABLET PO PRN ×2 (13:52→20:20)
[2021-11-14] MEDS: Acetaminophen 325 MG TABLET PO PRN (17:59)
[2021-11-14] MEDS: Mirtazapine 15 MG TABLET PO SCH (20:15)
[2021-11-14] MEDS: Latanoprost 2.5 ML BOTTLE BOTH EYES SCH (20:17)
[2021-11-15] MEDS: *HR* HYDROmorphone 2 MG/ML SYRINGE IVP PRN (01:13)
[2021-11-15] MEDS: Ipratropium/Albuterol Neb 3 ML IH SCH ×4 (03:50→19:57)
[2021-11-15] MEDS: Apixaban 5 MG TABLET PO SCH ×2 (08:10→20:43)
[2021-11-15 08:20] LABS: BUN/Creatinine Ratio 57 (6-26); Blood Urea Nitrogen 50 mg/dL (8-23); Calcium 9.4 mg/dL (8.6-10.3); Carbon Dioxide 28 mEq/L (23-29); Chloride 98 mEq/L (98-107); Glucose 88 mg/dL (70-105); Osmolality,Calculated 291 (280-300); Potassium 4.6 mEq/L (3.5-5.1); Sodium 134 mEq/L (136-145); eGFR For African Americans > 60 (> 60); eGFR For Non-African Americans > 60 (> 60)
[2021-11-15] MEDS: Furosemide 20 MG TABLET PO SCH (08:23)
[2021-11-15 08:39] LABS: Hemoglobin 8.9 g/dL (11.5-15.4); Mean Corpuscular HGB Conc 30.7 g/dL (31.6-35.5); Mean Corpuscular Hemoglobin 26.3 pg (28.0-33.3); Mean Corpuscular Volume 85.5 fL (83.0-100.0); Mean Platelet Volume 9.8 fL (9.4-12.4); Platelet Count 541 K/mcL (140-400); Red Blood Count 3.39 M/mcL (3.82-4.97); White Blood Count 13.3 K/mcL (4.3-11.1)
[2021-11-15] MEDS: *HR* HYDROmorphone (PF) 1 MG/ML SYRINGE IVP PRN (14:52)
[2021-11-15] MEDS: Mirtazapine 15 MG TABLET PO SCH (20:42)
[2021-11-15] MEDS: *HR* OxyCODONE Immed Rel 5 MG TABLET PO PRN (20:43)
[2021-11-15] MEDS: Latanoprost 2.5 ML BOTTLE BOTH EYES SCH (23:44)
[2021-11-16] MEDS: *HR* HYDROmorphone (PF) 1 MG/ML SYRINGE IVP PRN ×3 (03:01→23:02)
[2021-11-16] MEDS: Ipratropium/Albuterol Neb 3 ML IH SCH ×4 (03:39→20:52)
[2021-11-16] MEDS: Apixaban 5 MG TABLET PO SCH ×2 (08:52→20:40)
[2021-11-16] MEDS: Furosemide 20 MG TABLET PO SCH (08:53)
[2021-11-16] MEDS: *HR* OxyCODONE Immed Rel 5 MG TABLET PO PRN (13:40)
[2021-11-16] MEDS ORDERED: Orphenadrine 60 MG/2 ML VIAL IVP ONE (14:16)
[2021-11-16] MEDS: Latanoprost 2.5 ML BOTTLE BOTH EYES SCH (20:44)
[2021-11-16] MEDS ORDERED: Orphenadrine 100 MG TABLET.ER PO PRN (23:00)
[2021-11-16] MEDS: Melatonin 3 MG TABLET PO PRN (23:02)
[2021-11-16] MEDS: Mirtazapine 15 MG TABLET PO SCH (23:02)
[2021-11-17] MEDS: Ipratropium/Albuterol Neb 3 ML IH SCH ×2 (03:31→08:22)
[2021-11-17] MEDS: Furosemide 20 MG TABLET PO SCH (09:08)
[2021-11-17] MEDS: Apixaban 5 MG TABLET PO SCH (09:08)
[2021-11-17] MEDS ORDERED: Pfizer Covid-19 Vaccine 30MCG/0.3ML IM ONE (09:22)
[2021-11-17] MEDS ORDERED: *HR* OxyCODONE Immed Rel 5 MG TABLET PO PRN (09:28)
[2021-11-17] MEDS ORDERED: Moderna Covid-19 Vaccine 100MCG/0.5mL IM ONE ×2 (11:00→13:45)
[2021-11-17 11:42] VITALS: BP 112/62; PULSE 88; TEMP 98.6; O2SAT 91
[2021-11-17] MEDS: *HR* HYDROmorphone (PF) 1 MG/ML SYRINGE IVP PRN (13:57)
== END 2021-11-17 14:28 | disposition home health service (06) | DRG 871 ==
LOC: 2NENU → SUATTDRO 15:09 → 2ANU 11-13 06:46
PROVIDERS: ADMIT Student in an Organized Health Care Education/Training Program; ATTEND Internal Medicine